=== PATIENT | male | born 1990 | race African-American/Black ===

== ENCOUNTER 2017-01-19 08:07 | Emergency (ER) | payer SELFPAY ==
[~2017-01-19] VITALS: Ht 165.1 cm; Wt 90.0 kg
[~2017-01-19 08:07] MED LIST: DICL50 PO; NAPR550 PO; Z.0.NO CURRENT MEDS
[2017-01-19 08:09] VITALS: BP 125/62; PULSE 80; RESP 15; TEMP 98.2; O2SAT 99
--- NOTE | 2017-01-19 08:31 | PD ---
HPI Chief Complaint: Medical Clearance Time Seen by Provider: 08:27 Travel History International Travel<30 days: No Contact w/Intl Traveler<30days: No Traveled to known affect area: No History of Present Illness HPI This is a 26-year-old male who presents after having part of his roof in the bedroom fall down and hit him on the head while sleeping. Patient states he was sleeping in bed when the roof fell down striking him on the top of his head. He denies any loss of consciousness. He reports pain at the top of his head and in his clavicles. He denies any neck pain. There are no other complaints time my examination. PFSH Past Medical History Medical History: Denies Significant Hx Diminished Hearing: No Tetanus Vaccination: Unknown Influenza Vaccination: No Past Surgical History Eye Surgery: Yes (ligia 2001) Social History Alcohol Use: No Tobacco Use: Yes (07/05 PPD) Substance Use: No Allergies-Medications (Allergen,Severity, Reaction): Coded Allergies: No Known Allergies (Verified , 05/29/15) Reported Meds & Prescriptions Reported Meds & Active Scripts Active Anaprox DS (Naproxen Sodium) 550 Mg Tab 550 Mg PO BID PRN Voltaren (Diclofenac Sodium) 50 Mg Tabec 50 Mg PO TID Anaprox Ds (Naproxen Sodium) 550 Mg Tab 1 Tab PO BIDPRN Reported No Current Meds (Miscellaneous Medication) Misc Review of Systems Except as stated in HPI: all other systems reviewed are Neg Eyes: No: Diploplia, Blurred Vision HENT: Positive: Headaches, No: Lightheadedness, Neck Pain Cardiovascular: No: Chest Pain or Discomfort Respiratory: No: Cough, Shortness of Breath Gastrointestinal: No: Nausea, Vomiting, Abdominal Pain Musculoskeletal: Positive: Pain (bilateral clavicles), No: Weakness Neurologic: Positive: Headache, No: Weakness, Dizziness, Focal Abnormalities, Sensory Disturbance Physical Exam Narrative GENERAL: Well-nourished, well-developed patient, in no acute respiratory distress. SKIN: Focused skin assessment warm/dry. HEAD: Normocephalic. Patient has subjective tenderness at the top of his head. There is no hematomas or scalp lacerations noted. No bony deformity noted. EYES: No scleral icterus. No injection or drainage. NECK: Supple, trachea midline. No spinous process tenderness. CARDIOVASCULAR: Regular rate and rhythm without murmurs, gallops, or rubs. RESPIRATORY: Breath sounds equal bilaterally. No accessory muscle use. GASTROINTESTINAL: Abdomen soft, non-tender, nondistended. MUSCULOSKELETAL: No cyanosis, or edema. Patient is subjective tenderness to his bilateral clavicles. No bony deformity. Shoulders have full range of motion bilaterally. BACK: Nontender without obvious deformity. NEUROLOGICAL: Awake and alert. Cranial nerves II through XII intact. Motor and sensory grossly within normal limits. Five out of 5 muscle strength in all muscle groups. Normal speech. Data Data Last Documented VS Vital Signs Date Time Temp Pulse Resp B/P Pulse Ox O2 Delivery O2 Flow Rate FiO2 01/19/17 08:28 16 01/19/17 08:09 98.2 80 125/62 99 Orders Chest, Single Ap (01/19/17 08:27) Ct Brain W/O Iv Contrast(Rout) (01/19/17 08:27) Ct Cerv Spine W/O Contrast (01/19/17 08:31) MDM Medical Decision Making Medical Screen Exam Complete: Yes Emergency Medical Condition: Yes Differential Diagnosis Closed head injury versus cervical spine injury versus clavicle fracture. Narrative Course 26-year-old male presents after the ceiling fell down and struck his head while in bed. Patient reports pain at the top of his head and in his bilateral clavicles. The patient has no focal neuro deficits. He did not pass out but states he nearly did. Given the nature of the injury with an axial load type injury, a CT scan of the brain and cervical spine was ordered. Chest x-ray was ordered to rule out clavicle injury. The patient has clear breath sounds bilaterally. There are no other injuries reported. CT scans and x-rays are negative for acute injury. He'll be due instructed to use ice times 24-36 hrs. for discomfort. He'll be given a prescription for Anaprox DS 550 twice daily for 10 days. Diagnosis Primary Impression: Blunt head trauma Additional Impression: bilateral clavicle contusion Additional Instructions: Ice 2436 hours. Med/Other Pt SpecificInfo: Prescription(s) given Scripts Naproxen Sodium DS (Anaprox DS)550 Mg [id number] Mg PO BID PRN (PAIN SCALE 1 TO 6) # 20 TAB Ref 0 Prov:David Goode MD 01/19/17 Disposition: 01 DISCHARGE HOME Condition: Stable David Goode MD Jan 19, 2017 08:31
--- NOTE | 2017-01-19 08:52 | RADRPT ---
EXAM DATE/TIME: 01/19/2017 08:26 [facility] COMPARISON: No previous studies available for comparison. INDICATIONS : Pain from roof caving in on top of him. MEDICAL HISTORY : None. SURGICAL HISTORY : None. ENCOUNTER: Initial ACUITY: 1 day PAIN SCORE: 5/10 LOCATION: Bilateral upper chest FINDINGS: A single view of the chest demonstrates the lungs to be symmetrically aerated without evidence of mas s, infiltrate or effusion. The cardiomediastinal contours are unremarkable. Osseous structures are intact. CONCLUSION: No acute disease. Codey Sutton MD on January 19, 2017 at 8:50 Board Certified Radiologist. This report was verified electronically.
--- NOTE | 2017-01-19 09:00 | RADRPT ---
EXAM DATE/TIME: 01/19/2017 08:45 [facility] COMPARISON: No previous studies available for comparison. INDICATIONS : Trauma, part of ceiling fell on patient while sleeping. RADIATION DOSE: 36.53 CTDIvol (mGy) MEDICAL HISTORY : None SURGICAL HISTORY : None. ENCOUNTER: Initial ACUITY: 1 day PAIN SCALE: 4/10 LOCATION: cranial TECHNIQUE: Multiple contiguous axial images were obtained of the head. Using automated exposure control and adj ustment of the mA and/or kV according to patient size, radiation dose was kept as low as reasonably a chievable to obtain optimal diagnostic quality images. DICOM format image data is available electro nically for review and comparison. FINDINGS: CEREBRUM: The ventricles are normal for age. No evidence of midline shift, mass lesion, hemorrhage or acute in farction. No extra-axial fluid collections are seen. POSTERIOR FOSSA: The cerebellum and brainstem are intact. The 4th ventricle is midline. The cerebellopontine angle i s unremarkable. EXTRACRANIAL: The visualized portion of the orbits is intact. SKULL: The calvaria is intact. No evidence of skull fracture. CONCLUSION: No acute intracranial disease. Codey Sutton MD on January 19, 2017 at 8:56 Board Certified Radiologist. This report was verified electronically.
--- NOTE | 2017-01-19 09:04 | RADRPT ---
EXAM DATE/TIME: 01/19/2017 08:45 [facility] COMPARISON: No previous studies available for comparison. INDICATIONS : Trauma, part of ceiling fell on patient while sleeping. RADIATION DOSE: 21.30 CTDIvol (mGy) MEDICAL HISTORY : None SURGICAL HISTORY : None. ENCOUNTER: Initial ACUITY: 1 day PAIN SCALE: 4/10 LOCATION: neck TECHNIQUE: Volumetric scanning of the cervical spine was performed. Multiplanar reconstructions in the sagittal, coronal and oblique axial planes were performed. Using automated exposure control and adjustment o f the mA and/or kV according to patient size, radiation dose was kept as low as reasonably achievable to obtain optimal diagnostic quality images. DICOM format image data is available electronically f or review and comparison. FINDINGS: VERTEBRAE: Normal vertebral body height. Diffuse mild degenerative changes. ALIGNMENT: No evidence of subluxation. C2-C3: The bony spinal canal is normal in size. No evidence of disc bulge or herniation. The neural forami na are bilaterally patent. C3-C4: The bony spinal canal is normal in size. No evidence of disc bulge or herniation. The neural forami na are bilaterally patent. C4-C5: The bony spinal canal is normal in size. No evidence of disc bulge or herniation. The neural forami na are bilaterally patent. C5-C6: The bony spinal canal is normal in size. No evidence of disc bulge or herniation. The neural forami na are bilaterally patent. C6-C7: The bony spinal canal is normal in size. No evidence of disc bulge or herniation. The neural forami na are bilaterally patent. C7-T1: The bony spinal canal is normal in size. No evidence of disc bulge or herniation. The neural forami na are bilaterally patent. CONCLUSION: No fracture or subluxation. Codey Sutton MD on January 19, 2017 at 8:59 Board Certified Radiologist. This report was verified electronically.
[2017-01-19] MEDS ORDERED: NAPR550 PO (09:11)
== END 2017-01-19 09:33 | disposition home or self-care (01) ==
LOC: NEPC 08:07
DX: S09.90XA Unspecified injury of head, initial encounter (principal); S40.012A Contusion of left shoulder, initial encounter; S40.011A Contusion of right shoulder, initial encounter; W20.8XXA Other cause of strike by thrown, projected or falling object, initial encounter
CPT/HCPCS: 70450; 71010; 72125; 99285